=== PATIENT | male | born 1950 | race Caucasian/White ===

== ENCOUNTER 2018-04-01 14:27 | Emergency (ER) | payer MEDICARE ==
--- NOTE | 2018-04-01 14:51 | ED Physician Documentation ---
General Adult - HISTORIAN Historian: patient - HPI Chief Complaint: Skin Rash Additional Information: Patient states that he has developed a scttered rash to the trunk and exremities. Has a dog that has had fleas. Rash starts as a red bumps, then become vesicles and break. MIldly itching in nature. No previous rash noted. No one else lives in home. Has been out in the [place] and has been exposed to itch weed. Onset: days ago (3 days) Timing: still present - ROS CONST: no problems. denies: fever, chills - PAST HX Past History: none Surgeries/Procedures: other (back surgery, kidney stone "laser" surgery) Immunizations: referred to PCP Allergies/Adverse Reactions: Allergies Allergy/AdvReac Type Severity Reaction Status Date / Time No Known Allergies Allergy Verified 04/01/18 14:55 Home Medications: Ambulatory Orders Medication Instructions Recorded Triamcinolone Acetonide 0.1% 1 appl TP BID PRN #80 gm 04/01/18 [Kenalog] - SOCIAL HX Smoking History: less than 1 pack/day (1/2 ppd) Alcohol Use: none Drug Use: none - FAMILY HX Family History: No - VITAL SIGNS Vital Signs: Vital Signs Temp Pulse Resp BP Pulse Ox 120/74 04/03/16 12:46 - REVIEWED ASSESSMENTS Nursing Assessment Reviewed: Yes Vitals Reviewed: Yes General Adult Physical Exam - PHYSICAL EXAM GENERAL APPEARANCE: mild distress NECK: normal inspection RESPIRATORY: no resp distress, chest non-tender. No: wheezes, rales, rhonchi CVS: reg rate & rhythm, no gallop ABDOMEN: soft, no organomegaly, normal bowel sounds SKIN: other (small red nodule with 1 cm erythema, some are denuded from scratching. ) NEURO: oriented X3, mood/affect nml Discharge Clincal Impression: Dermatitis Prescriptions: Triamcinolone Acetonide 0.1% [Kenalog] 1 appl TP BID PRN #80 gm PRN Reason: for rash Referrals: Primary Doctor,No [Primary Care Provider] - 2 Days Additional Instructions: Use steroid cream twice a dy for the next several days. Watch for any secondary infection. If symptoms do not improve to follow-up with your primary care provider. Condition: Stable Disposition: 01 HOME, SELF-CARE Decision to Admit: NO Date of Decison to Admit: 04/01/18 Decision Time: 15:02
[2018-04-01 14:55] VITALS: BP 130/81
== END 2018-04-01 15:15 | disposition home or self-care (01) ==
LOC: ED 14:27
DX: L30.9 Dermatitis, unspecified (principal)
CPT/HCPCS: 99282

== ENCOUNTER 2018-04-11 16:29 | Outpatient (CLI) | payer MEDICARE ==
[2018-04-11 16:51] LABS: BASOPHILS % 0.8 (0.0-1.5); EOSINOPHILS % 3.7 % (0.0-6.8); MEAN CORPUSCULAR HEMOGLOBIN 32.8 pg (28.0-34.0); MEAN CORPUSCULAR VOLUME 98.3 fl (80.0-100.0); MONOCYTES % 4.2 % (0.0-11.0); NEUTROPHILS # 3.9 # k/uL (1.4-7.7)
[2018-04-11 17:02] LABS: eGFR (African) > 60; eGFR (Non-African) > 60
[2018-04-11 17:03] LABS: APPEARANCE,URINE CLEAR (CLEAR); COLOR,URINE YELLOW (YELLOW); OCCULT BLOOD,URINE NEGATIVE (NEGATIVE); PH URINE 6.5 (5.0 - 8.0); UROBILINOGEN URINE 0.2 Eu (0.2-1.0)
== END 2018-04-11 16:30 ==
LOC: LAB 16:29
PROVIDERS: ATTEND Family Medicine
DX: I10 Essential (primary) hypertension (principal); R39.11 Hesitancy of micturition
CPT/HCPCS: 36415; 80053; 81002; 85025

== ENCOUNTER 2018-04-14 01:20 | Emergency (ER) | payer MEDICARE ==
--- NOTE | 2018-04-14 01:57 | ED Physician Documentation ---
General Adult - HISTORIAN Historian: patient - HPI Stated Complaint: worms coming out of feet Chief Complaint: General Adult Additional Information: Worms coming out of feet for 3-4 days. Was seen at the [facility] on 04/11 (?) and given cream. Says they told him they could nt see worms. Saw Dr. Francisco and gave him a whole bag of worms. Was started on amoxicillin. Came to [facility] because a big worm that looked like a leech, with a big mouth and teeth came out of the top of his left foot. It was 3 inches long and an inch wide. He is worried about his dogs. Has been using bleach on his skin. Smokes marijuana and cigarettes. - ROS CONST: no problems - PAST HX Past History: none Allergies/Adverse Reactions: Allergies Allergy/AdvReac Type Severity Reaction Status Date / Time No Known Allergies Allergy Verified 04/01/18 14:55 Home Medications: Ambulatory Orders Medication Instructions Recorded Triamcinolone Acetonide 0.1% 1 appl TP BID PRN #80 gm 04/01/18 [Kenalog] - SOCIAL HX Smoking History: cigarettes Drug Use: marijuana - FAMILY HX Family History: No - VITAL SIGNS Vital Signs: Vital Signs Temp Pulse Resp BP Pulse Ox 130/81 04/01/18 16:25 - REVIEWED ASSESSMENTS Nursing Assessment Reviewed: Yes Vitals Reviewed: Yes Progress - Progress Progress: UDS positive for marijuana, amphetamines, methamphetamine. Explained that meth could cause skin lesion and visual hallucinations. Pt leaves [facility] one will give him meds to treat worms. ED Results Lab/Radiology - Orders Orders: ED Orders Category Date Time Status DRUG SCREEN URINE MEDICAL ONLY Routine Lab 04/14/18 Ordered URINALYSIS Routine Lab 04/14/18 Ordered General Adult Physical Exam - PHYSICAL EXAM GENERAL APPEARANCE: moderate distress (barefooted, dirty feet, anxious) EENT: eye inspection normal, ENT inspection normal NECK: normal inspection, supple RESPIRATORY: no resp distress SKIN: warm/dry, normal color, other (superficial abrasions over chest and legs, left foot. Lint, hair on feet and toes. No worms. ) EXTREMITIES: normal range of motion (gait and stance) NEURO: CN's nml as tested, motor nml, sensation nml Discharge Clincal Impression: Abrasions of multiple sites, Hallucinations Referrals: Lee Francisco MD [Primary Care Provider] - 2 Days Condition: Fair Disposition: 07 AGAINST MEDICAL ADVICE Decision to Admit: NO Decision Time: 01:58
[2018-04-14 02:22] VITALS: BP 141/81
[2018-04-14 08:10] LABS: CANNABINOIDS NON NEGATIVE ng/mL (< 50); METHYLENEDIOXYMETHAMPHETAMINE NEGATIVE ng/mL (<500)
[2018-04-14 08:11] LABS: APPEARANCE,URINE CLEAR (CLEAR); COLOR,URINE YELLOW (YELLOW); OCCULT BLOOD,URINE NEGATIVE (NEGATIVE); PH URINE 5.5 (5.0 - 8.0); UROBILINOGEN URINE 0.2 Eu (0.2-1.0)
== END 2018-04-14 01:45 | disposition left against medical advice (07) ==
LOC: ED 01:20
DX: S90.812A Abrasion, left foot, initial encounter (principal); S80.812A Abrasion, left lower leg, initial encounter; S80.811A Abrasion, right lower leg, initial encounter; R44.3 Hallucinations, unspecified; Z53.9 Procedure and treatment not carried out, unspecified reason
CPT/HCPCS: 80377; 81002; 99283; G0481